=== PATIENT | male | born 1970 | race Caucasian/White ===

== ENCOUNTER 2017-01-19 13:23 | Emergency (ER) | payer OTHER ==
[~2017-01-19] VITALS: Ht 177.8 cm; Wt 99.0 kg
[2017-01-19] MEDS ORDERED: ROPI0.5T PO (13:47)
[2017-01-19] MEDS ORDERED: QUET25TA5 PO (13:47)
[2017-01-19] MEDS ORDERED: VITA1CAP PO (13:47)
[2017-01-19] MEDS ORDERED: CHOL400C PO (13:47)
[2017-01-19] MEDS ORDERED: VENL37.57 PO (13:47)
[2017-01-19 14:12] LABS: ASPARTATE AMINO TRANSFERASE 23 U/L (15-37); BLOOD UREA NITROGEN 15 mg/dL (7-18)
[2017-01-19] MEDS ORDERED: OXYcodone/APAP 10/325MG TABLET ONE (14:45)
[2017-01-19 14:50] VITALS: BP 133/82
[2017-01-19] MEDS ORDERED: OXYcodone/APAP 10/325MG TABLET PO ONE (15:00)
== END 2017-01-19 15:24 | disposition home or self-care (01) ==
LOC: EDSEX 13:23 → ED 13:54
DX: G40.309 Generalized idiopathic epilepsy and epileptic syndromes, not intractable, without status epilepticus (principal)
CPT/HCPCS: 36415; 80053; 85025; 99284